=== PATIENT | male | born 1945 | race Caucasian/White ===

== ENCOUNTER 2017-09-21 11:00 | Outpatient (CLI) | payer MEDICARE ==
--- NOTE | 2017-09-22 07:41 | ULT ---
TESTICULAR ULTRASOUND 09/21/17 Scrotal ultrasound was done to evaluate swelling. There is a history of a hernia repair in July 02 and the patient states that swelling has never improved since then. Multiple images were obtained and reviewed from this ultrasound study. There are what appear to be mass densities in the pelvis bilaterally. The etiology of these is unclea r. In the scrotum itself, the right testicle measures 4.3 x 2.3 x 3.1 cm and the left measures 3.8 x 2.6 x 2.8 cm. Some blood flow is present in each, though it is difficult to confirm well on the left side. No testicular masses were seen. The right epididymis was 1.2 cm in size at maximal measurement and was unremarkable. The left epididy mis was similar with the head being slightly larger at 1.5 cm. There is also a mass density in the le ft scrotum separate from the testicle. It measures about 9 x 6 cm. I cannot tell if this is a true ma ss or bowel. There is a small hydrocele on the left. IMPRESSION: 1. The testicles themselves appear intact and without obvious mass. Difficult to see blood flow in them, but some appears to be present. 2. Mass density seen in the lower pelvis and the left scrotum of indeterminate etiology. As the next step in this patient, I would strongly recommend a CT of the abdomen and pelvis, with contrast i f possible to better investigate these findings. Code T POS: HOME
== END 2017-09-21 11:01 | disposition home or self-care (01) ==
LOC: BURULT 11:00
PROVIDERS: ATTEND Surgery
DX: N50.89 Other specified disorders of the male genital organs (principal); R19.00 Intra-abdominal and pelvic swelling, mass and lump, unspecified site
CPT/HCPCS: 76870; 93976

== ENCOUNTER 2023-04-21 08:27 | Emergency (ER) | payer MEDICARE | END 2023-04-21 08:51 | disposition home or self-care (01) | LOC: BURERS 08:27 | DX: J02.0 Streptococcal pharyngitis (principal); R05.9 Cough, unspecified | CPT/HCPCS: 99283 ==